=== PATIENT | male | born 1950 | race Caucasian/White ===

== ENCOUNTER 2016-07-02 09:22 | Inpatient (IN) | payer BC ==
[2016-07-02] MEDS ORDERED: Aspirin Low Dose CHEW TAB* 81 MG PO ONE (09:40)
[2016-07-02] MEDS ORDERED: Metoprolol Tartrate IV* 1 MG/ML 5 ML VIAL IV ONE (10:02)
--- NOTE | 2016-07-02 10:22 | RAD ---
INDICATION: Short of breath COMPARISON: None TECHNIQUE: An AP portable view obtained at 0944 hours is submitted. FINDINGS: Bones/Soft Tissues: There are no acute bony findings. Cardiomediastinal: The cardiomediastinal silhouette is normal. Lungs: There are no infiltrates. Pleura: There are no pleural effusions. Other: None IMPRESSION: NO ACTIVE DISEASE.
[2016-07-02 10:25] LABS: Hematocrit 43 % (42-52); Hemoglobin 14.6 g/dl (14.0-18.0); Mean Corpuscular HGB Conc 34 g/dl (31-36); Mean Corpuscular Hemoglobin 32 pg (27-31); Mean Corpuscular Volume 95 fL (80-94); Mean Platelet Volume 9 um3 (7.4-10.4); Red Cell Distribution Width 13 % (10.5-15); White Blood Count 6.3 10^3/ul (3.5-10.8)
[2016-07-02 10:38] LABS: Troponin I 0.01 ng/mL (<0.04)
[2016-07-02 10:41] LABS: Albumin 4.3 g/dL (3.2-5.2); BUN/Creatinine Ratio 22.1 (8-20); Calcium 9.4 mg/dL (8.6-10.3); EGFR African American 129.6 (>60); EGFR Non-African American 100.8 (>60); Globulin 3.4 g/dL (2-4); Potassium 3.9 mmol/L (3.5-5.0); Total Protein 7.7 g/dL (6.4-8.9)
[2016-07-02 10:42] LABS: Total Bilirubin 0.6 mg/dL (0.2-1.0)
[2016-07-02] MEDS ORDERED: Meclizine TAB* 12.5 MG PO PRN (11:59)
[2016-07-02] MEDS ORDERED: Ibuprofen TAB* 200 MG PO PRN (11:59)
[2016-07-02] MEDS ORDERED: Albuterol HFA INHALER* 8 gm MDI INH PRN (11:59)
[2016-07-02 13:20] LABS: Troponin I 0.05 ng/mL (<0.04)
[2016-07-02] MEDS: amLODIPine TAB* 5 MG PO SCH (14:07)
[2016-07-02] MEDS: Heparin VIAL(*) 5000 UNITS/ML VIAL (FIVE THOUSAND) SUBCUT SCH ×2 (14:08→22:28)
[2016-07-02 14:33] LABS: HDL Cholesterol 58.6 mg/dL
--- NOTE | 2016-07-02 16:07 | HP ---
HOSPITAL MEDICINE HISTORY AND PHYSICAL: DATE OF ADMISSION: 07/02/16 PRIMARY CARE PHYSICIAN: Dr. Shannon. ATTENDING PHYSICIAN: Dr. Anand Lester* (dictation provided by Diane Rivera NP). CHIEF COMPLAINT: Shortness of breath. HISTORY OF PRESENT ILLNESS: Mr. Gilbert is a 65-year-old male with a past medical history of hypertension, hyperlipidemia, and vertigo, who presents to the hospital today with concern for shortness of breath. Mr. Gilbert states that approximately 1 week ago, he began to feel like it was difficult for him to catch his breath while he is at rest. He states that he only notices these symptoms when he is at rest. He primarily notices in the morning when he gets up and when he is working on his computer. He describes taking deep breaths and at times feeling like he is almost hyperventilating and becoming lightheaded because he is having such a hard time feeling that he is adequately oxygenated. 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 He states that with this activity, he has never had any chest pain. He does not feel the shortness of breath. He feels like he only notices it when he is still. He denies any other symptoms of cough, chest pain, nausea , or abdominal pain. Mr. Gilbert went to [facility] today out of concern for his symptoms. While there, he had an EKG which showed some concern for T-wave inversions in V3 through V6 and therefore, he was transported to [facility] for further evaluation. While here, he has had a troponin which was 0.01 and an EKG which showed no T-wave inversions in these leads. On review of the previous EKG, it almost looks like the patient has a biphasic T wave in those leads and again, that has resolved now. The patient has been symptom- free for most of the time in the ED, but during the time of my examination, he does report feeling that he recently began to again feel the symptom of having difficulty catching his breath. The patient's blood pressure was noted to be 200/104 on arrival to the ED. PAST MEDICAL HISTORY: 1. Hypertension. 2. Hyperlipidemia. 3. Vertigo. 4. History of tinnitus with steroid injections. MEDICATIONS: 1. Albuterol p.r.n. 2. WelChol 625 mg p.o. b.i.d. 3. Multivitamin with mineral 1 tab p.o. daily. 4. Ibuprofen 200 mg p.o. daily p.r.n. 5. Lisinopril 40 mg p.o. q.p.m. 6. Meclizine 25 mg p.o. t.i.d. p.r.n. ALLERGIES: No known drug allergies. FAMILY HISTORY: The patient reports that his mom is alive at 94. His dad in his 80s, likely related to a heart attack. He states the healthcare proxy would be his , [place]. SOCIAL HISTORY: No report of tobacco or drug use. The patient does state that he drinks daily with 2 beers before dinner and 2 glasses of wine with dinner. He states he has never had any symptoms of alcohol withdrawal. REVIEW OF SYSTEMS: A 14-point review of systems was completed with Mr. Gilbert and all those not mentioned above were negative. PHYSICAL EXAMINATION GENERAL: Mr. Gilbert is sitting in the bed. He is in no acute distress. VITAL SIGNS: Temperature 97.5, heart rate 62, respiratory rate 21, O2 saturation 95% on room air, blood pressure 166/109. I will note that on arrival the patient's blood pressure was 200/104. LUNGS: Clear to auscultation bilaterally with no accessory muscle use and good aeration. HEART: S1, S2. No murmur, rub, or gallop, and regular. ABDOMEN: Soft, nontender with bowel sounds positive x4. EXTREMITIES: No cyanosis or edema. NEURO: He is alert and oriented x3. Moves all extremities equally. There is no facial asymmetry or focal weakness. Extraocular movements are intact. SKIN: Intact. DIAGNOSTIC STUDIES/LAB DATA: Sodium 139, potassium 3.9, chloride 105, serum bicarbonate 24, BUN 17, creatinine 0.77, glucose 99. Troponin 0.01. WBC 6.3, hemoglobin 14.6, hematocrit 43, platelet count 186. Chest x-ray shows no acute process. EKG shows sinus rhythm with heart rate in the 80s and no evidence of ischemia. ASSESSMENT AND PLAN: Mr. Gilbert is a 65-year-old male with a past medical history of hypertension and hyperlipidemia, who presents today to the hospital with concern for shortness of breath at rest. He has been found to have question of EKG changes on EKG, at [facility], which is now resolved with a troponin of 0.01. Our plans are for observation in the hospital for the followin. Shortness of breath: The patient's symptoms do not overtly appear to be cardiac in origin as he is able to engage in strenuous activity without these symptoms and only feels them at rest. However, he does have hypertension, hyperlipidemia, and EKG with some abnormality noted with biphasic T waves in the V leads. Plan to rule out acute coronary syndrome with troponin x3 and nuclear medicine exercise stress test tomorrow. 2. Hypertension: Continue lisinopril. The patient's blood pressure was quite elevated in the emergency room initially, but has come down nicely now. We will continue to monitor. I suspect the part of this was related to stress, but certainly an elevated blood pressure could contribute to some demand ischemia which might be what was seen on the EKG, although those changes were again nonspecific. 3. DVT prophylaxis with heparin subcu. 4. Disposition to telemetry floor. TIME SPENT: Approximately 60 minutes was spent in the admission of this patient , more than half the time was spent with him at the bedside reviewing the events leading up to this hospitalization, performing the physical examination, and reviewing my plan of care. DIANE RIVERA NP CC: Dr. Shannon* [id number]/CPS #: [id number] CRIS
--- NOTE | 2016-07-02 16:08 | ECHO ---
Patient: [facility] Rec#: [id number] : 1950 Date: 07/02/2016 Age: 65y Height: 177.8 cm / 70.0 in Weight: 76.2 kg / 167.9 lbs Sex: M BSA: 1.94 Room#: 453 Admit Date#: 07/02/2016 Type: Inpatient Referring: Diane Rivera NP Reading: Adamaris Curtis MD Data Analysis Intern: Karol Licona RDCS CC: Bradford Shannon MD Transthoracic Echocardiogram Indication: SOB BP: 179/87 HR: 61 Rhythm: NSR Findings History: HTN,HLD,vertigo, increaseing SOB over the last several days. Sent by ambulance from [address] [place] [address]. Technical Comments: The study quality is good. Completed at 1540. Left Ventricle: The left ventricular chamber size is normal. Mild to moderate concentric left ventricular hypertrophy is observed. There is moderately decreased left ventricular systolic function. The estimated ejection fraction is 25-30%. The basal inferolateral, basal inferior, basal inferoseptal, mid inferolateral, mid inferior, mid inferoseptal, apical septal, and apical inferior wall segments are hypokinetic (score 2). Overall wallmotion score index is 1.50 Left Atrium: The left atrium is moderately dilated. Right Ventricle: The right ventricular cavity size is normal. The right ventricular global systolic function is normal. Right Atrium: The right atrium is mildly dilated. A patent foramen ovale is demonstrated by color Doppler. There is evidence of an atrial septal aneurysm. Best seen subcostally. Mitral Valve: The mitral valve leaflets are mildly thickened. There is mild mitral regurgitation. There is no evidence of mitral stenosis. Tricuspid Valve: The tricuspid valve leaflets are normal. There is mild tricuspid regurgitation. There is evidence of borderline pulmonary hypertension. There is no tricuspid stenosis. Pulmonic Valve: The pulmonic valve appears normal. There is trace to mild pulmonic regurgitation. There is no pulmonic stenosis. Pericardium: The pericardium appears normal. Aorta: There is mild dilatation of the ascending aorta. There is no dilatation of the aortic arch. There is no dilation of the aortic root. Pulmonary Artery: The main pulmonary artery appears normal. Venous: The inferior vena cava appears normal in size. There is a greater than 50% respiratory change in the inferior vena cava dimension. Summary: There was not any prior study for comparison. Conclusions Mild to moderate concentric left ventricular hypertrophy is observed. There is moderately decreased left ventricular systolic function. The estimated ejection fraction is 25-30%. The left atrium is moderately dilated. There is mild mitral regurgitation. There is mild tricuspid regurgitation. There is trace to mild pulmonic regurgitation. There is mild dilatation of the ascending aorta. Measurements Name Value Normal Range RVIDd (AP) 2D 2.5 cm (0.9 - 2.6) RVDdMajor (2D) 4 cm (2.2 - 4.4) RAd ISD 4CH 5.4 cm (3.4 - 4.9) RA (A4C)W 4 cm (2.9 - 4.6) IVSd (2D) 1.3 cm (0.6 - 1) LVPWd (2D) 1.2 cm (0.6 - 1) LVIDd (2D) 5 cm (3.6 - 5.4) LVIDs (2D) 4.6 cm - LV FS (2D) 8 % (25 - 45) Aortic Annulus 2.4 cm (1.4 - 2.6) Ao root diameter (2D) 3.3 cm (2.1 - 3.5) Ascending Ao 3.9 cm (2.1 - 3.4) Aortic arch 3 cm (1.8 - 3.4) LA dimension (AP) 2D 4.8 cm (2.3 - 3.8) LAd ISD 4CH 5.3 cm (2.9 - 5.3) LA ISD 4CH W 4.9 cm (2.5 - 4.5) Name Value Normal Range LA ESV SP 4CH (A/L) 66 ml - LA ESV SP 2CH (A/L) 66 ml - LA ESV BP (A/L) 71 ml - LA ESV BP (A/L) index 36.48 ml/m2 - LA ESV SP 4CH (MOD) 62 ml - LA ESV SP 2CH (MOD) 63 ml - Name Value Normal Range MV E-wave Vmax 0.6 m/sec - MV deceleration time 215 msec - MV A-wave Vmax 1.1 m/sec - MV E:A ratio 0.54 ratio - LV septal e' Vmax 0.03 m/sec - LV lateral e' Vmax 0.04 m/sec - LV E:e' septal ratio 20 ratio - LV E:e' lateral ratio 15 ratio - Name Value Normal Range AV Vmax 1.6 m/sec - AV VTI 30.7 cm - AV peak gradient 10.11 mmHg - AV mean gradient 5.16 mmHg - LVOT Vmax 1.2 m/sec - LVOT VTI 21.4 cm - LVOT peak gradient 5.5 mmHg - LVOT mean gradient 1.95 mmHg - Name Value Normal Range TR Vmax 2.8 m/sec - TR peak gradient 32 mmHg - RAP 3 mmHg - RVSP 35 mmHg - IVC diameter 1.6 cm - Name Value Normal Range PV Vmax 0.9 m/sec - PV peak gradient 3.37 mmHg - Wallmotion BAS Normal BA Normal BAL Normal WILEY Hypokinetic BI Hypokinetic BIS Hypokinetic MAS Normal MA Normal MAL Normal MIL Hypokinetic NH Hypokinetic MIS Hypokinetic Hypokinetic AA Normal AL Normal AI Hypokinetic APEX Normal
[2016-07-02] MEDS ORDERED: Metoprolol Tartrate TAB* 25 MG ONE (16:46)
[2016-07-02] MEDS ORDERED: nitroGLYCERIN DRIP* 250 ML ONE (16:47)
[2016-07-02] MEDS ORDERED: Iohexol 350 (CONTRAST) 200 ML MDV IV ONE (16:47)
[2016-07-02] MEDS ORDERED: Lidocaine 1% INJ* 10 MG/ML 30 ML SDV ONE (16:47)
[2016-07-02] MEDS ORDERED: fentaNYL* 50 MCG/ML 2 ML VIAL (100 MCG VIAL) ONE (16:47)
[2016-07-02] MEDS ORDERED: Heparin 2 UNITS/ML IVPREMIX* 3,000 ML IV ONE (16:47)
[2016-07-02] MEDS ORDERED: Midazolam* 1 MG/ML 5 ML VIAL (5 MG) ONE (16:47)
[2016-07-02] MEDS ORDERED: Diazepam TAB(*) 5 MG ONE (16:52)
[2016-07-02] MEDS ORDERED: diPHENhydraMINE PO* 50 MG ONE (16:53)
[2016-07-02] MEDS ORDERED: Metoprolol Tartrate IV* 1 MG/ML 5 ML VIAL ONE (17:18)
[2016-07-02] MEDS ORDERED: Furosemide IV* 10 MG/ML VIAL (40 MG) ONE (17:27)
[2016-07-02] MEDS ORDERED: diPHENhydraMINE PO* 50 MG PO SCH (18:00)
[2016-07-02] MEDS ORDERED: Diazepam TAB(*) 5 MG PO SCH (18:00)
[2016-07-02] MEDS ORDERED: NS 0.45% 1000 ML BAG* 1,000 ML IV SCH (18:00)
[2016-07-02] MEDS ORDERED: Nitroglycerin 2% OINT* 1 GM PAK ONE (18:17)
[2016-07-02] MEDS ORDERED: Nitroglycerin TAB 0.4 MG* 0.4 MG TAB SL PRN (18:39)
[2016-07-02] MEDS ORDERED: Acetaminophen TAB* 325 MG PO PRN (18:39)
[2016-07-02] MEDS ORDERED: oxyCODONE/Acetamin 5/325 MG* TAB PO PRN (18:39)
[2016-07-02] MEDS ORDERED: NS 0.9% 1000 ML* 1,000 ML IV SCH (18:45)
--- NOTE | 2016-07-02 19:02 | CONS ---
CC: Hospitalist Service, Diane Rivera NP; Dr. Curtis; Dr. Shannon CARDIOLOGY CONSULTATION REPORT: DATE OF CONSULT: 07/02/16 PRIMARY CARE PHYSICIAN: Dr. Shannon. HISTORY OF PRESENT ILLNESS: I was asked by Diane Rivera NP, of the hospitalist service, to see this 65-year-old male patient who came to the hospital with progressive symptoms of shortness of breath a nd fatigability. His shortness of breath has been going on for about 1 week at rest. His fatigabil ity has been going on for 3 to 4 months. The patient does have history of systemic arterial hyperte nsion and hyperlipidemia, for which he takes blood pressure medications in the form of lisinopril 40 mg daily and also Norvasc 5 mg daily. He takes WelChol for his hyperlipidemia. He gives no histor y of diabetes mellitus, no myocardial infarction, no coronary artery disease, no history of congesti ve heart failure. He gives no chest pain, no orthopnea, no PND, no dizziness, no syncope, no fever, no chills, no flu symptoms, no swelling in the lower extremities, no tachycardia is appreciated. Abel herrera is very active. 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 He drinks alcohol 3 to 4 drinks daily, which is at least moderate. He was never evaluated from cardiac standpoint in e past according to him. He states 3 to 4 months ago, he had been having fatigability and decrease in his energy. A week ago, he had been having more progressive symptoms of shortness of breath unti l it became at rest, when it bothered him significantly, he decided to come to the hospital. Today, he had a transthoracic echocardiogram that was grossly abnormal showing his EF to be globally 25% t o 30% with concerning wall motion abnormality more involving the inferior lateral wall. He had no p ericardial effusion and only mild valvular disease. PAST MEDICAL HISTORY: Includes, systemic arterial hypertension and also hyperlipidemia. He does webster ve history of vertigo. PAST SURGICAL HISTORY: Hernia surgeries. MEDICATIONS: As an outpatient include: 1. WelChol 625 mg twice a day. 2. Albuterol. 3. Multivitamins. 3. Lisinopril 40 mg daily. 4. Meclizine 25 mg t.i.d. p.r.n. His medications as an inpatient include: 1. Norvasc 5 mg daily. 2. Aspirin 325 mg daily. 3. Lisinopril 40 mg daily. 4. Meclizine 25 mg t.i.d. 5. Ventolin 2 puffs p.r.n. ALLERGIES: He has no known drug allergies. FAMILY HISTORY: No family history of premature CAD. SOCIAL HISTORY: He drinks alcohol 3 to 4 drinks daily. No history of cigarette smoking, no illicit drug abuse. REVIEW OF SYSTEMS: Review of all other systems is essentially negative. PHYSICAL EXAM: He is awake, alert, and oriented. He is not in acute distress. Vitals: Blood press ure is 150/90, pulse is 60, he is in sinus rhythm. Head and Neck Exam: Normocephalic, atraumatic h ead. Ears, nose, and throat essentially benign. Neck: Supple. JVD is not elevated. No carotid b ruits. No masses in the neck are appreciated. Chest: Clear to auscultation, no rales, no wheeze, no added sounds appreciated. Heart: Normal, regular, S1 and S2. No added sounds, no gallops, no r ubs. Abdomen: Benign, soft. Positive bowel sounds. Extremities: No edema, no cyanosis, no clubbi ng. Skin exam is normal. Psych: Normal affect and mood. 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 DIAGNOSTIC STUDIES/LAB DATA: White blood cells 6.3, hemoglobin 14.6, hematocrit 43, platelets 186. Sodium 139, potassium 3.9, chloride 105, BUN 17, creatinine 0.77. Troponin 0.01, that was at 10:10 this morning and did go up to 0.05 at 12:50 today. Triglyceride 115, cholesterol 253, LDL 171, HDL 58.6. His EKG showed him to be in sinus rhythm. There is LVH. There are some SVT changes. T-wave invers ion in leads III and aVF, some borderline ST depression in leads II and also leads V5 and V6. His chest x-ray was reported to have no active disease. IMPRESSION: The patient is a 65-year-old male patient with: 1. Presentation with progressive symptoms of shortness of breath for 1 week at rest and fatigabilit y for 3 to 4 months. 2. Grossly abnormal echo with an ejection fraction globally 25% to 30% and concerning wall motion a bnormality of the inferior wall. 3. Abnormal EKG as described. 4. Systemic arterial hypertension. 5. Hyperlipidemia with significantly elevated LDL. 6. Obesity. 7. At least moderate alcoholic drinking. PLAN: Concerning for his cardiomyopathy, the etiology is not immediately clear. Concerns for ischem ic heart disease, he does have risk factors. He does have wall motion abnormality by his echo. Oth ers in the differential if coronary artery disease is excluded are idiopathic; viral cardiomyopathy; alcoholic cardiomyopathy, he does drink at least moderate alcohol; hypertensive cardiomyopathy. At the present time, we discussed left cardiac catheterization with the patient and his family. Benef its and risks discussed with the patient. He is willing to proceed. This would be done today. Any further recommendations would be based on his cardiac catheterization. Meanwhile, I recommend tamiko nuing his Norvasc and lisinopril. I will initiate a very low-dose beta-dewey treatment given his borderline resting bradycardia. Any further recommendations would be pending his clinical outcome. He is not in congestive heart failure on physical examination. TIME SPENT: More than half of at least 60 to 65 plus minutes was in the education and counseling mo de, [id number] explaining all of the above to the patient and answering all of his concerns and qu estions up to his satisfaction. [id number]/[facility] #: [id number]
[2016-07-02] MEDS: Lisinopril TAB* 10 MG PO SCH (19:41)
[2016-07-02] MEDS ORDERED: nitroGLYCERIN DRIP* 25,000 MCG in PREMIX* 0 ML IV SCH (20:00)
[2016-07-02] MEDS ORDERED: Ondansetron INJ* 2 MG/ML VIAL ONE (20:13)
[2016-07-02] MEDS ORDERED: Atropine SYRINGE* 0.1 MG/ML 10 ML SYRINGE (1 MG) ONE (20:13)
[2016-07-02] MEDS ORDERED: NS 0.9% 250 ML* 200 ML IV ONE (21:00)
--- NOTE | 2016-07-03 02:08 | CATH ---
CC: Diane Rivera NP; Dr. Curtis; Dr. Shannon CARDIAC CATHETERIZATION REPORT: DATE OF PROCEDURE: 07/02/16 PROCEDURES: Left cardiac catheterization, selective coronary angiography, left ventriculography. HISTORY: The patient is a 65-year-old male patient with a history of systemic arterial hypertension and hyperlipidemia. He presented to the hospital with 1 week of progressive symptoms of shortness of breath at rest. He had been having fatigability for 3 to 4 months. He was found to have troponi n initially of 0.01, did go up to 0.[address]-T abnormalities by his EKG of T-wave inversions and borderline ST depression. An echocardiogram done today showed him to have a global left ventric ular systolic function of 25% to 30% decrease with focal wall motion abnormality involving the infer oposterior lateral wall. Based on his abnormalities with his newly diagnosed cardiomyopathy, he was further referred for a cardiac catheterization to evaluate for any ischemic cardiomyopathy. DESCRIPTION OF PROCEDURE: After informed written consent had been obtained, the patient was brought into the cardiac catheterization lab where the right femoral region was prepped and draped in the u sual sterile fashion. 1% Xylocaine was used for local anesthesia. Next, the right femoral artery w as entered and a 6-Finnish placed into the right femoral artery. Through the right femoral arterial sheath, a 6-Finnish JL4 catheter was advanced over the arch of the aorta and I was able to engage int o the left anterior descending artery. Of notice, there was no left main. There were 2 separate os tia of the left coronary system. Angiography of the LAD was obtained. Next, a JL5 catheter was advanced over the arch of the aorta and I was able to engage into the circu mflex coronary artery and angiography was obtained. Next, this catheter was removed and a 6-Finnish pigtail catheter was advanced over the arch of the aorta to perform an aortic root injection to visu ricarda the right coronary artery which we were able to visualize it. Next, this catheter was removed and initially, a JR4 catheter was attempted and unable to engage into the right coronary artery. I was able to cross the aortic valve into the left ventricle and pressure recording through the left ventricular wall was obtained. This catheter was removed and multipurpose catheter was used to engag e into the right coronary artery. Angiography was obtained and this catheter was removed. Hemostasi s was obtained with a Mynx device successfully. There were no complications and the patient tolerat ed the procedure very well. HEMODYNAMICS: The aortic pressure is 155/82, left ventricle is 159 with an LVEDP of 12 mmHg. Of notice, IV nitro drip was used as the blood pressure initially was significantly elevated. ANGIOGRAPHIC RESULTS: Left anterior descending artery: The left anterior descending artery was a l arge caliber vessel. It has proximal maybe 30% disease before it bifurcates into the first diagonal branch. The first diagonal branch was a large caliber vessel and the mid segment has about 55% to 60% noncritical disease. The second diagonal branch was a large caliber vessel immediately bifurcat es and in the first bifurcation, it has about 55% noncritical disease, moderate in nature. Circumflex coronary artery: The circumflex coronary artery was a very large caliber vessel and it w as dominant. It has mild 20% noncritical disease. Right coronary artery: The right coronary artery was a small caliber vessel and it has mild 20% to 30% noncritical disease. Left ventriculography: Pressure recording from the left ventricle 159 mmHg with an LVEDP of 12 mmHg . CONCLUSION: 1. Moderate noncritical disease of the diagonal branches of the LAD and of the left circ and of the RCA as described. 2. Hemostasis obtained with the Mynx device successfully. [id number]/[facility] #: [id number]
[2016-07-03] MEDS: Heparin VIAL(*) 5000 UNITS/ML VIAL (FIVE THOUSAND) SUBCUT SCH ×3 (05:37→21:01)
[2016-07-03 06:07] LABS: Hematocrit 42 % (42-52); Mean Corpuscular HGB Conc 34 g/dl (31-36); Mean Corpuscular Hemoglobin 32 pg (27-31); Mean Corpuscular Volume 96 fL (80-94); Mean Platelet Volume 9 um3 (7.4-10.4); Red Cell Distribution Width 13 % (10.5-15); White Blood Count 7.2 10^3/ul (3.5-10.8)
[2016-07-03 06:18] LABS: Albumin 3.7 g/dL (3.2-5.2); BUN/Creatinine Ratio 23.5 (8-20); Calcium 8.7 mg/dL (8.6-10.3); EGFR African American 115.6 (>60); EGFR Non-African American 89.9 (>60); Globulin 3.2 g/dL (2-4); Potassium 3.7 mmol/L (3.5-5.0); Total Bilirubin 0.4 mg/dL (0.2-1.0); Total Protein 6.9 g/dL (6.4-8.9)
[2016-07-03] MEDS ORDERED: Metoprolol Succinate XL TAB* 25 MG PO SCH (09:00)
[2016-07-03] MEDS: amLODIPine TAB* 5 MG PO SCH (09:20)
[2016-07-03] MEDS: Aspirin TAB* 325 MG PO SCH (09:20)
[2016-07-03] MEDS: Lisinopril TAB* 10 MG PO SCH (17:13)
--- NOTE | 2016-07-03 17:32 | PN ---
Subjective Date of Service: 07/03/16 Interval History: Patient feels fine and says he feels back to his USOH. Objective Active Medications: Acetaminophen (Tylenol Tab*) 650 mg PO Q4H PRN PRN Reason: PAIN - MILD Albuterol (Ventolin Hfa Inhaler*) 2 puff INH DAILY PRN PRN Reason: SOB/WHEEZING Amlodipine Besylate (Norvasc Tab*) 5 mg PO DAILY [facility] Last Admin: 07/03/16 09:20 Dose: 5 mg Aspirin (Aspirin Tab*) 325 mg PO DAILY [facility] Last Admin: 07/03/16 09:20 Dose: 325 mg Diazepam (Valium Tab(*)) 5 mg PO ONCALL [facility] Stop: 07/03/16 17:59 Diphenhydramine HCl (Benadryl Po*) 50 mg PO ONCALL [facility] Stop: 07/03/16 17:59 Heparin Sodium (Porcine) (Heparin Vial(*)) 5,000 units SUBCUT Q8HR [facility] Last Admin: 07/03/16 14:34 Dose: 5,000 units Ibuprofen (Advil Tab*) 200 mg PO DAILY PRN PRN Reason: PAIN Lisinopril (Prinivil Tab*) 40 mg PO QPM [facility] Last Admin: 07/03/16 17:13 Dose: 40 mg Meclizine HCl (Antivert Tab*) 25 mg PO TID PRN PRN Reason: DIZZINESS Metoprolol Succinate (Toprol Xl Tab*) 12.5 mg PO BID [facility] Nitroglycerin (Nitroglycerin Tab 0.4 Mg*) 0.4 mg SL Q5M PRN PRN Reason: ANGINA Oxycodone/Acetaminophen (Percocet 5/325 Tab*) 1 tab PO Q6H PRN PRN Reason: PAIN - SEVERE Last Admin: 07/02/16 20:30 Dose: 1 tab Vital Signs 07/02/16 07/02/16 07/02/16 18:42 18:43 18:45 Temperature 98.7 F Pulse Rate 59 56 Respiratory 17 20 14 Rate Blood Pressure 150/95 150/95 165/104 (mmHg) O2 Sat by Pulse 96 95 Oximetry 07/02/16 07/02/16 07/02/16 18:50 18:55 19:00 Temperature Pulse Rate 54 52 53 Respiratory 18 17 13 Rate Blood Pressure 130/84 (mmHg) O2 Sat by Pulse 97 96 94 Oximetry 07/02/16 07/02/16 07/02/16 19:05 19:10 19:15 Temperature Pulse Rate 52 53 52 Respiratory 17 19 20 Rate Blood Pressure 130/81 (mmHg) O2 Sat by Pulse 96 95 95 Oximetry 07/02/16 07/02/16 07/02/16 19:20 19:25 19:30 Temperature Pulse Rate 51 52 51 Respiratory 18 17 17 Rate Blood Pressure 121/77 (mmHg) O2 Sat by Pulse 95 96 97 Oximetry 07/02/16 07/02/16 07/02/16 19:35 19:40 19:45 Temperature Pulse Rate 52 51 51 Respiratory 18 18 14 Rate Blood Pressure 110/91 (mmHg) O2 Sat by Pulse 95 95 97 Oximetry 07/02/16 07/02/16 07/02/16 19:50 19:55 20:00 Temperature Pulse Rate 54 54 51 Respiratory 18 16 12 Rate Blood Pressure 111/77 (mmHg) O2 Sat by Pulse 96 92 97 Oximetry 07/02/16 07/02/16 07/02/16 20:05 20:10 20:13 Temperature Pulse Rate 48 43 44 Respiratory 13 13 16 Rate Blood Pressure 88/54 (mmHg) O2 Sat by Pulse 95 97 97 Oximetry 07/02/16 07/02/16 07/02/16 20:14 20:15 20:16 Temperature Pulse Rate 46 51 45 Respiratory 16 16 Rate Blood Pressure 68/39 81/60 (mmHg) O2 Sat by Pulse 95 98 Oximetry 07/02/16 07/02/16 07/02/16 20:20 20:21 20:25 Temperature Pulse Rate 44 44 45 Respiratory 15 15 16 Rate Blood Pressure 119/74 123/74 (mmHg) O2 Sat by Pulse 99 99 99 Oximetry 07/02/16 07/02/16 07/02/16 20:30 20:35 20:40 Temperature Pulse Rate 45 49 45 Respiratory 13 17 9 Rate Blood Pressure 141/77 142/89 (mmHg) O2 Sat by Pulse 98 99 96 Oximetry 07/02/16 07/02/16 07/02/16 20:45 20:50 20:55 Temperature Pulse Rate 48 49 49 Respiratory 11 11 12 Rate Blood Pressure 142/80 (mmHg) O2 Sat by Pulse 93 100 100 Oximetry 07/02/16 07/02/16 07/02/16 21:00 21:04 21:10 Temperature Pulse Rate 50 51 51 Respiratory 12 12 12 Rate Blood Pressure 124/75 (mmHg) O2 Sat by Pulse 100 100 100 Oximetry 07/02/16 07/02/16 07/02/16 21:15 21:20 21:23 Temperature 97.7 F Pulse Rate 51 54 Respiratory 12 13 Rate Blood Pressure 126/73 (mmHg) O2 Sat by Pulse 100 100 Oximetry 07/02/16 07/02/16 07/02/16 21:25 21:30 21:35 Temperature Pulse Rate 53 54 52 Respiratory 15 16 11 Rate Blood Pressure 137/74 (mmHg) O2 Sat by Pulse 100 100 100 Oximetry 07/02/16 07/02/16 07/02/16 21:40 21:45 21:50 Temperature Pulse Rate 51 51 50 Respiratory 13 12 10 Rate Blood Pressure 114/70 (mmHg) O2 Sat by Pulse 100 99 99 Oximetry 07/02/16 07/02/16 07/02/16 21:55 22:00 22:05 Temperature Pulse Rate 51 51 52 Respiratory 13 13 15 Rate Blood Pressure 125/76 (mmHg) O2 Sat by Pulse 99 99 99 Oximetry 07/02/16 07/02/16 07/02/16 22:10 22:15 22:20 Temperature Pulse Rate 50 50 49 Respiratory 12 13 12 Rate Blood Pressure 119/75 (mmHg) O2 Sat by Pulse 99 99 99 Oximetry 07/02/16 07/02/16 07/02/16 22:23 22:25 22:30 Temperature 98.1 F Pulse Rate 50 50 Respiratory 14 13 Rate Blood Pressure 128/76 (mmHg) O2 Sat by Pulse 99 99 Oximetry 07/02/16 07/02/16 07/02/16 22:35 22:40 22:44 Temperature Pulse Rate 57 61 53 Respiratory 22 15 16 Rate Blood Pressure (mmHg) O2 Sat by Pulse 99 100 98 Oximetry 07/02/16 07/02/16 07/02/16 22:45 22:50 22:55 Temperature Pulse Rate 52 52 Respiratory 21 20 Rate Blood Pressure 142/85 (mmHg) O2 Sat by Pulse 100 100 Oximetry 07/02/16 07/02/16 07/02/16 23:00 23:05 23:10 Temperature Pulse Rate 53 53 55 Respiratory 16 16 18 Rate Blood Pressure 134/85 (mmHg) O2 Sat by Pulse 99 98 98 Oximetry 07/02/16 07/02/16 07/02/16 23:15 23:20 23:23 Temperature 98.3 F Pulse Rate 59 66 Respiratory 20 22 Rate Blood Pressure 143/93 (mmHg) O2 Sat by Pulse 98 98 Oximetry 07/02/16 07/02/16 07/02/16 23:25 23:30 23:35 Temperature Pulse Rate 54 56 54 Respiratory 22 18 17 Rate Blood Pressure 126/75 (mmHg) O2 Sat by Pulse 99 98 98 Oximetry 07/02/16 07/02/16 07/02/16 23:40 23:45 23:50 Temperature Pulse Rate 56 55 65 Respiratory 18 17 19 Rate Blood Pressure 122/75 (mmHg) O2 Sat by Pulse 95 97 91 Oximetry 07/02/16 07/03/16 07/03/16 23:55 00:00 00:01 Temperature 98.3 F Pulse Rate 58 53 52 Respiratory 20 11 12 Rate Blood Pressure 127/78 (mmHg) O2 Sat by Pulse 97 97 96 Oximetry 07/03/16 07/03/16 07/03/16 00:05 00:09 00:11 Temperature Pulse Rate 52 51 52 Respiratory 12 11 12 Rate Blood Pressure (mmHg) O2 Sat by Pulse 95 93 93 Oximetry 07/03/16 07/03/16 07/03/16 00:15 00:20 00:23 Temperature 98.4 F Pulse Rate 51 51 Respiratory 12 12 Rate Blood Pressure 114/62 (mmHg) O2 Sat by Pulse 93 94 Oximetry 07/03/16 07/03/16 07/03/16 00:25 00:30 00:35 Temperature Pulse Rate 51 49 49 Respiratory 11 11 11 Rate Blood Pressure 116/61 (mmHg) O2 Sat by Pulse 94 95 95 Oximetry 07/03/16 07/03/16 07/03/16 00:40 00:45 00:50 Temperature Pulse Rate 49 49 49 Respiratory 11 11 11 Rate Blood Pressure 115/68 (mmHg) O2 Sat by Pulse 95 95 95 Oximetry 07/03/16 07/03/16 07/03/16 00:55 01:00 01:05 Temperature Pulse Rate 49 47 49 Respiratory 11 10 12 Rate Blood Pressure 109/64 (mmHg) O2 Sat by Pulse 94 95 91 Oximetry 07/03/16 07/03/16 07/03/16 01:09 01:15 01:20 Temperature Pulse Rate 48 49 48 Respiratory 11 11 11 Rate Blood Pressure 116/67 (mmHg) O2 Sat by Pulse 96 95 96 Oximetry 07/03/16 07/03/16 07/03/16 01:25 01:30 01:35 Temperature Pulse Rate 47 47 51 Respiratory 10 10 13 Rate Blood Pressure 123/69 (mmHg) O2 Sat by Pulse 96 96 94 Oximetry 07/03/16 07/03/16 07/03/16 01:40 01:45 01:50 Temperature Pulse Rate 46 45 47 Respiratory 11 10 10 Rate Blood Pressure 122/70 (mmHg) O2 Sat by Pulse 96 96 96 Oximetry 07/03/16 07/03/16 07/03/16 01:55 02:00 02:05 Temperature Pulse Rate 56 47 50 Respiratory 16 10 14 Rate Blood Pressure 132/68 (mmHg) O2 Sat by Pulse 89 96 95 Oximetry 07/03/16 07/03/16 07/03/16 02:10 02:15 02:20 Temperature Pulse Rate 47 48 62 Respiratory 13 12 17 Rate Blood Pressure 135/80 (mmHg) O2 Sat by Pulse 94 97 99 Oximetry 07/03/16 07/03/16 07/03/16 02:25 02:30 02:35 Temperature Pulse Rate 55 52 51 Respiratory 14 12 14 Rate Blood Pressure 144/73 (mmHg) O2 Sat by Pulse 97 95 95 Oximetry 07/03/16 07/03/16 07/03/16 02:40 02:45 02:50 Temperature Pulse Rate 50 51 52 Respiratory 13 13 15 Rate Blood Pressure 134/66 (mmHg) O2 Sat by Pulse 96 95 97 Oximetry 07/03/16 07/03/16 07/03/16 02:55 03:00 03:05 Temperature Pulse Rate 53 54 54 Respiratory 12 15 16 Rate Blood Pressure 142/72 (mmHg) O2 Sat by Pulse 97 97 98 Oximetry 07/03/16 07/03/16 07/03/16 03:10 03:15 03:20 Temperature Pulse Rate 51 52 53 Respiratory 14 11 14 Rate Blood Pressure 150/78 (mmHg) O2 Sat by Pulse 97 97 97 Oximetry 07/03/16 07/03/16 07/03/16 03:25 03:30 03:35 Temperature Pulse Rate 51 49 49 Respiratory 11 12 11 Rate Blood Pressure 151/70 (mmHg) O2 Sat by Pulse 97 96 96 Oximetry 07/03/16 07/03/16 07/03/16 03:40 03:45 03:50 Temperature Pulse Rate 50 47 49 Respiratory 14 12 11 Rate Blood Pressure 135/75 (mmHg) O2 Sat by Pulse 94 95 95 Oximetry 07/03/16 07/03/16 07/03/16 03:55 04:00 04:05 Temperature 98.5 F Pulse Rate 48 48 47 Respiratory 10 11 10 Rate Blood Pressure 128/72 (mmHg) O2 Sat by Pulse 94 94 94 Oximetry 07/03/16 07/03/16 07/03/16 04:09 04:15 04:20 Temperature Pulse Rate 47 50 50 Respiratory 10 14 11 Rate Blood Pressure 135/72 (mmHg) O2 Sat by Pulse 94 91 94 Oximetry 07/03/16 07/03/16 07/03/16 04:25 04:30 04:35 Temperature Pulse Rate 47 47 48 Respiratory 13 10 16 Rate Blood Pressure 131/70 (mmHg) O2 Sat by Pulse 93 95 96 Oximetry 07/03/16 07/03/16 07/03/16 04:40 04:45 04:50 Temperature Pulse Rate 50 49 53 Respiratory 14 13 14 Rate Blood Pressure 131/69 (mmHg) O2 Sat by Pulse 92 93 94 Oximetry 07/03/16 07/03/16 07/03/16 04:55 05:00 05:05 Temperature Pulse Rate 50 49 49 Respiratory 19 17 16 Rate Blood Pressure 118/69 (mmHg) O2 Sat by Pulse 92 94 95 Oximetry 07/03/16 07/03/16 07/03/16 05:10 05:15 05:20 Temperature Pulse Rate 50 55 48 Respiratory 19 13 14 Rate Blood Pressure 150/72 (mmHg) O2 Sat by Pulse 92 98 98 Oximetry 07/03/16 07/03/16 07/03/16 05:25 05:30 05:35 Temperature Pulse Rate 49 48 49 Respiratory 14 14 14 Rate Blood Pressure 125/71 (mmHg) O2 Sat by Pulse 97 98 98 Oximetry 07/03/16 07/03/16 07/03/16 05:40 05:45 05:46 Temperature Pulse Rate 56 50 51 Respiratory 19 10 13 Rate Blood Pressure 143/75 (mmHg) O2 Sat by Pulse 98 97 98 Oximetry 07/03/16 07/03/16 07/03/16 05:50 05:52 05:55 Temperature Pulse Rate 51 50 Respiratory 13 11 12 Rate Blood Pressure (mmHg) O2 Sat by Pulse 98 98 Oximetry 07/03/16 07/03/16 07/03/16 06:00 06:05 06:10 Temperature Pulse Rate 49 47 47 Respiratory 12 11 11 Rate Blood Pressure 142/77 (mmHg) O2 Sat by Pulse 98 98 98 Oximetry 07/03/16 07/03/16 07/03/16 06:15 06:20 06:25 Temperature Pulse Rate 48 49 48 Respiratory 13 15 11 Rate Blood Pressure 148/77 (mmHg) O2 Sat by Pulse 98 99 99 Oximetry 07/03/16 07/03/16 07/03/16 06:30 06:35 06:40 Temperature Pulse Rate 49 48 48 Respiratory 11 13 9 Rate Blood Pressure 139/71 (mmHg) O2 Sat by Pulse 98 98 98 Oximetry 07/03/16 07/03/16 07/03/16 06:45 06:49 06:55 Temperature Pulse Rate 49 47 49 Respiratory 11 12 11 Rate Blood Pressure 141/76 (mmHg) O2 Sat by Pulse 98 98 98 Oximetry 07/03/16 07/03/16 07/03/16 07:00 07:05 07:10 Temperature Pulse Rate 47 47 46 Respiratory 11 11 12 Rate Blood Pressure 134/69 (mmHg) O2 Sat by Pulse 98 97 98 Oximetry 07/03/16 07/03/16 07/03/16 07:15 07:20 07:25 Temperature Pulse Rate 46 48 45 Respiratory 11 11 11 Rate Blood Pressure 142/78 (mmHg) O2 Sat by Pulse 98 98 98 Oximetry 07/03/16 07/03/16 07/03/16 07:30 07:35 07:40 Temperature 99.0 F Pulse Rate 55 54 56 Respiratory 14 13 17 Rate Blood Pressure 151/78 (mmHg) O2 Sat by Pulse 97 97 97 Oximetry 07/03/16 07/03/16 07/03/16 07:45 07:51 07:55 Temperature Pulse Rate 58 Respiratory 22 9 17 Rate Blood Pressure (mmHg) O2 Sat by Pulse 97 Oximetry 07/03/16 07/03/16 07/03/16 08:00 08:03 08:05 Temperature Pulse Rate 54 54 Respiratory 19 16 13 Rate Blood Pressure 155/82 (mmHg) O2 Sat by Pulse 100 99 Oximetry 07/03/16 07/03/16 07/03/16 08:10 08:14 09:00 Temperature Pulse Rate 56 52 55 Respiratory 18 13 13 Rate Blood Pressure (mmHg) O2 Sat by Pulse 98 95 96 Oximetry 07/03/16 07/03/16 07/03/16 09:02 10:00 10:03 Temperature Pulse Rate 56 57 58 Respiratory 21 21 17 Rate Blood Pressure 151/95 145/83 (mmHg) O2 Sat by Pulse 96 100 99 Oximetry 07/03/16 07/03/16 07/03/16 10:57 11:00 11:02 Temperature Pulse Rate 62 62 Respiratory 15 19 22 Rate Blood Pressure 160/73 (mmHg) O2 Sat by Pulse 97 98 Oximetry 07/03/16 07/03/16 07/03/16 11:30 11:57 12:00 Temperature 98.8 F Pulse Rate 64 Respiratory 15 17 Rate Blood Pressure 144/83 (mmHg) O2 Sat by Pulse 99 Oximetry 07/03/16 07/03/16 07/03/16 13:00 13:18 14:10 Temperature 98.2 F Pulse Rate 58 Respiratory 17 17 18 Rate Blood Pressure 128/76 (mmHg) O2 Sat by Pulse 98 Oximetry Oxygen Devices in Use Now: None Appearance: WD/WN gentleman sitting up in bed in NAD Eyes: No Scleral Icterus Ears/Nose/Mouth/Throat: Clear Oropharnyx Neck: No Thyroid Enlargement, Masses Respiratory: Clear to Auscultation Cardiovascular: - - S1S2 laith Abdominal: NL Sounds; No Tenderness; No Distention, No Hepatosplenomegaly Lymphatic: No Cervical Adenopathy Skin: No Rash or Ulcers Neurological: Alert and Oriented x 3 Result Diagrams: 07/03/16 05:50 07/03/16 05:50 Microbiology and Other Data: Microbiology 07/02/16 18:49 Nasal Screen MRSA (PCR)(ABEBA) - Final Nasal Mrsa Negative Assess/Plan/Problems-Billing Assessment: 65 year old admitted with SOB and found to have severe cardiomyopathy of unclear etiology. - Patient Problems (1) CHF (congestive heart failure) Current Visit: Yes Status: Acute Code(s): I50.9 - HEART FAILURE, UNSPECIFIED SNOMED Code(s): 10162345 Comment: Patient found to have severe cardiomyopathy of unclear etiology. Appreciate cardiology's input . For Life Vest on Tuesday prior to discharge. (2) Hypertension Current Visit: Yes Status: Acute Code(s): I10 - ESSENTIAL (PRIMARY) HYPERTENSION SNOMED Code(s): 19346612 Comment: Adequate control. Continue amlodipine, metoprolol, and Lisinopril. (3) Hyperlipidemia Current Visit: Yes Status: Acute Code(s): E78.5 - HYPERLIPIDEMIA, UNSPECIFIED SNOMED Code(s): 79772612 Comment: LDL is high. Start Lipitor. (4) DVT prophylaxis Current Visit: Yes Status: Acute Code(s): EMS5801 - SNOMED Code(s): 170237333 Comment: heparin sub q (5) Full code status Current Visit: Yes Status: Acute Code(s): Z78.9 - OTHER SPECIFIED HEALTH STATUS SNOMED Code(s): 712607454
[2016-07-03] MEDS ORDERED: Atorvastatin* 20 MG TAB PO SCH (18:30)
[2016-07-03] MEDS: Metoprolol Succinate XL TAB* 25 MG PO SCH (21:00)
[2016-07-04] MEDS: Heparin VIAL(*) 5000 UNITS/ML VIAL (FIVE THOUSAND) SUBCUT SCH ×3 (05:23→21:27)
[2016-07-04] MEDS ORDERED: Pneumococcal Vac Polyvalent* 0.5 ML VIAL IM ONE (09:00)
[2016-07-04] MEDS: amLODIPine TAB* 5 MG PO SCH (09:14)
[2016-07-04] MEDS: Aspirin TAB* 325 MG PO SCH (09:14)
[2016-07-04] MEDS: Metoprolol Succinate XL TAB* 25 MG PO SCH ×2 (09:14→21:26)
--- NOTE | 2016-07-04 13:55 | PN ---
Subjective Date of Service: 07/04/16 Interval History: Patient without complaints. Objective Active Medications: Acetaminophen (Tylenol Tab*) 650 mg PO Q4H PRN PRN Reason: PAIN - MILD Albuterol (Ventolin Hfa Inhaler*) 2 puff INH DAILY PRN PRN Reason: SOB/WHEEZING Amlodipine Besylate (Norvasc Tab*) 5 mg PO DAILY [facility] Last Admin: 07/04/16 09:14 Dose: 5 mg Aspirin (Aspirin Tab*) 325 mg PO DAILY [facility] Last Admin: 07/04/16 09:14 Dose: 325 mg Atorvastatin Calcium (Lipitor*) 20 mg PO 1700 [facility] Last Admin: 07/03/16 18:29 Dose: 20 mg Heparin Sodium (Porcine) (Heparin Vial(*)) 5,000 units SUBCUT Q8HR [facility] Last Admin: 07/04/16 13:08 Dose: 5,000 units Ibuprofen (Advil Tab*) 200 mg PO DAILY PRN PRN Reason: PAIN Lisinopril (Prinivil Tab*) 40 mg PO QPM [facility] Last Admin: 07/03/16 17:13 Dose: 40 mg Meclizine HCl (Antivert Tab*) 25 mg PO TID PRN PRN Reason: DIZZINESS Metoprolol Succinate (Toprol Xl Tab*) 12.5 mg PO BID [facility] Last Admin: 07/04/16 09:14 Dose: 12.5 mg Nitroglycerin (Nitroglycerin Tab 0.4 Mg*) 0.4 mg SL Q5M PRN PRN Reason: ANGINA Oxycodone/Acetaminophen (Percocet 5/325 Tab*) 1 tab PO Q6H PRN PRN Reason: PAIN - SEVERE Last Admin: 07/02/16 20:30 Dose: 1 tab Vital Signs 07/03/16 07/03/16 07/03/16 14:10 15:25 19:31 Temperature 98.2 F 98.1 F 98.1 F Pulse Rate 58 57 66 Respiratory 18 17 17 Rate Blood Pressure 128/76 141/79 165/90 (mmHg) O2 Sat by Pulse 98 98 97 Oximetry 07/03/16 07/03/16 07/03/16 20:00 21:00 23:37 Temperature 98.1 F 97.5 F Pulse Rate 60 55 Respiratory 17 18 16 Rate Blood Pressure 159/76 146/83 (mmHg) O2 Sat by Pulse 99 97 Oximetry 07/04/16 07/04/16 07/04/16 03:16 07:49 08:03 Temperature 97.5 F 98.5 F Pulse Rate 58 56 Respiratory 16 16 Rate Blood Pressure 167/96 158/87 (mmHg) O2 Sat by Pulse 98 100 Oximetry 07/04/16 11:43 Temperature 98.1 F Pulse Rate 53 Respiratory Rate Blood Pressure 133/72 (mmHg) O2 Sat by Pulse 96 Oximetry Oxygen Devices in Use Now: None Appearance: WD/WN gentleman sitting up in bed in NAD Eyes: No Scleral Icterus Ears/Nose/Mouth/Throat: Mucous Membranes Moist Neck: No Thyroid Enlargement, Masses Respiratory: Clear to Auscultation Cardiovascular: - - S1s2 JANINE Abdominal: NL Sounds; No Tenderness; No Distention, No Hepatosplenomegaly Lymphatic: No Cervical Adenopathy Extremities: No Clubbing, Cyanosis Skin: No Rash or Ulcers Neurological: Alert and Oriented x 3 Result Diagrams: 07/03/16 05:50 07/03/16 05:50 Microbiology and Other Data: Microbiology 07/02/16 18:49 Nasal Screen MRSA (PCR)(ABEBA) - Final Nasal Mrsa Negative Assess/Plan/Problems-Billing Assessment: 65 year old admitted with SOB and found to have severe cardiomyopathy of unclear etiology. - Patient Problems (1) CHF (congestive heart failure) Current Visit: Yes Status: Acute Code(s): I50.9 - HEART FAILURE, UNSPECIFIED SNOMED Code(s): 81650780 Comment: Patient found to have severe cardiomyopathy of unclear etiology . Appreciate cardiology's input .Continue current meds. For Life Vest tomorrow then discharge. (2) Hypertension Current Visit: Yes Status: Acute Code(s): I10 - ESSENTIAL (PRIMARY) HYPERTENSION SNOMED Code(s): 22324030 Comment: Borderline control. For now, continue amlodipine, metoprolol, and Lisinopril. (3) Hyperlipidemia Current Visit: Yes Status: Acute Code(s): E78.5 - HYPERLIPIDEMIA, UNSPECIFIED SNOMED Code(s): 82604056 Comment: LDL is high. Continue Lipitor. (4) DVT prophylaxis Current Visit: Yes Status: Acute Code(s): BRT8103 - SNOMED Code(s): 183414167 Comment: heparin sub q (5) Full code status Current Visit: Yes Status: Acute Code(s): Z78.9 - OTHER SPECIFIED HEALTH STATUS SNOMED Code(s): 747834115
[2016-07-04] MEDS: Lisinopril TAB* 10 MG PO SCH (17:18)
[2016-07-04] MEDS ORDERED: Atorvastatin* 20 MG TAB PO SCH (18:00)
[2016-07-05] MEDS: Heparin VIAL(*) 5000 UNITS/ML VIAL (FIVE THOUSAND) SUBCUT SCH ×2 (05:35→12:50)
[2016-07-05 09:11] VITALS: BP 152/79
[2016-07-05] MEDS: amLODIPine TAB* 5 MG PO SCH (09:14)
[2016-07-05] MEDS: Aspirin TAB* 325 MG PO SCH (09:14)
[2016-07-05] MEDS: Metoprolol Succinate XL TAB* 25 MG PO SCH ×2 (09:15→17:04)
--- NOTE | 2016-07-06 14:31 | DS ---
DISCHARGE SUMMARY: DATE OF ADMISSION: 07/02/16 DATE OF DISCHARGE: 07/05/16 ADMISSION DIAGNOSIS: Shortness of breath. SECONDARY DIAGNOSES: 1. Hypertension. 2. Hyperlipidemia. DISCHARGE DIAGNOSES: 1. Shortness of breath. 2. Hypertension. 3. Hyperlipidemia. 4. Nonischemic cardiomyopathy. HOSPITAL COURSE: The patient is a 65-year-old gentleman who was admitted to [facility] with a chief complaint of shortness of breath. Please see H and P for further details. The patient was admitted and did have a slight bump in his troponins. He was seen in consult by Cardiology. The patient did have a cardiac catheterization. The cardiac cath showed moderate noncritical disease. He also had a transthoracic echocardiogram. This showed an EF of 25% to 30%. The patient was felt to have a nonischemic cardiomyopathy of uncertain origin. However, interestingly he felt considerably improved as his hospital stay progressed and did not require supplemental oxygen. However, due to his low EF, he did receive a LifeVest prior to discharge. The patient was stable to discharge on 07/05/16 with close followup with his PCP and Cardiology. PHYSICAL EXAMINATION ON THE DATE OF DISCHARGE: Well-developed, well-nourished gentleman lying in bed, in no acute distress. Vital Signs: Temperature 98.4 degrees, heart rate is 66 beats per minute, respiratory rate 16 breaths per minute, pulse ox 99%, and blood pressure 152/79. HEENT: Normocephalic, atraumatic. Pupils equal, round, and reactive to light. Moist mucous membranes. Neck: Supple. No JVD, bruits, palpable thyroid, or lymphadenopathy. Chest: Clear to auscultation and percussion bilaterally. Cardiovascular: S1 and S2 appreciated. Abdominal exam: Positive bowel sounds in all 4 quadrants. Soft, nontender, nondistended. Extremities: No cyanosis, clubbing or edema. +2 pulses bilaterally. Neuro: Alert and oriented x3. Moves all extremities. Skin: No new rashes or abnormalities. STUDIES DONE WHILE IN THE HOSPITAL: Transthoracic echocardiogram, 07/02/16, impression: Mild to moderate concentric left ventricular hypertrophy observed. Laterally decreased left ventricular systolic function. Estimated ejection fraction 25% to 30%. Left atrium moderately dilated. Mild mitral regurgitation , mild tricuspid regurgitation, trace to mild pulmonic regurgitation, moderate rotation in the ascending aorta. Cardiac catheterization, 07/02/16, impression: Moderate non-critical disease of diagonal branch of the LAD and of the left circ and of the RCA as described. Hemostasis was obtained with a Mynx device successfully. DISCHARGE MEDICATIONS: 1. Welchol 625 mg twice daily. 2. Albuterol two puffs inhaled daily as needed. 3. Multivitamin one tablet daily. 4. Meclizine 25 mg 3 times a day. 5. Lisinopril 40 mg daily. 6. Amlodipine 5 mg daily. 7. Nitroglycerin 0.4 mg sublingual q. 5 minutes as needed. 8. Metoprolol succinate 12.5 mg twice a day. 9. Aspirin 325 mg daily. DISCHARGE PLAN: The patient will be discharged home. He is to follow up with his PCP as well as Dr. Curtis in the next 1 to 2 weeks. The patient should return to ED if he develops worrisome symptoms. TIME SPENT: Over 40 minutes was spent on this discharge, more than 25 minutes of which was spent in direct [id number] contact with the patient in evaluation , physical exam, counseling, and coordination of care. CC: Dr. Curtis; Dr. Shannon* [id number]/CPS #: [id number] [facility]
== END 2016-07-05 17:12 | disposition home or self-care (01) | DRG 192 ==
LOC: ED 09:22 → MEDTELE 11:58 → OBSVTOIN 11:58 → MEDTELE 13:20 → ICU 18:54 → MEDTELE 07-03 13:59
PROVIDERS: ADMIT Internal Medicine; ATTEND Internal Medicine
PROC: B211YZZ Fluoroscopy of Multiple Coronary Arteries using Other Contrast (ICD-10-PCS; 2016-07-02)
PROC: B215YZZ Fluoroscopy of Left Heart using Other Contrast (ICD-10-PCS; 2016-07-02)
PROC: 4A023N7 Measurement of Cardiac Sampling and Pressure, Left Heart, Percutaneous Approach (ICD-10-PCS; principal; 2016-07-02 15:00)
DX: I25.10 Atherosclerotic heart disease of native coronary artery without angina pectoris (principal); I11.0 Hypertensive heart disease with heart failure; I50.9 Heart failure, unspecified; E78.5 Hyperlipidemia, unspecified; Z79.1 Long term (current) use of non-steroidal anti-inflammatories (NSAID); Z79.899 Other long term (current) drug therapy
CPT/HCPCS: 36415; 71010; 80053; 80061; 83605; 84484; 85025; 87641; 90732; 93005; 93306; 93458; A9270-GY; C1760; C1887; J0461; J1644; J1940; J2001; J2250; J2405; J3010